=== PATIENT | female | born 1955 | race Caucasian/White ===

== ENCOUNTER 2019-03-03 13:45 | Emergency (ER) | payer OTHER ==
[2019-03-03] MEDS: DIPHTH/TET/ACEL PERTUSS (ADULT) 0.5 ML VIAL IM* (15:58)
== END 2019-03-03 17:36 | disposition home or self-care (01) ==
LOC: FTE 13:45
DX: S60.041A Contusion of right ring finger without damage to nail, initial encounter (principal); S60.031A Contusion of right middle finger without damage to nail, initial encounter; W23.1XXA Caught, crushed, jammed, or pinched between stationary objects, initial encounter; Y92.9 Unspecified place or not applicable; Z23 Encounter for immunization
CPT/HCPCS: 29130; 73130-RT; 90471; 90715; 99283-25